=== PATIENT | female | born 1965 ===

== ENCOUNTER 2017-10-19 17:44 | Emergency (ER) | payer OTHER ==
[~2017-10-19] VITALS: Ht 154.9 cm; Wt 77.1 kg
[2017-10-19 18:32] VITALS: BP 128/84
[2017-10-19] MEDS ORDERED: IBUPROFEN 800 MG TAB PO ONE (20:00)
== END 2017-10-19 20:48 | disposition home or self-care (01) ==
LOC: ER 17:44
DX: S93.402A Sprain of unspecified ligament of left ankle, initial encounter (principal); W01.0XXA Fall on same level from slipping, tripping and stumbling without subsequent striking against object, initial encounter; Y93.89 Activity, other specified; Y99.8 Other external cause status; Y92.89 Other specified places as the place of occurrence of the external cause
CPT/HCPCS: 73590; 73610